=== PATIENT | male | born 1990 | race Caucasian/White ===

== ENCOUNTER 2022-03-31 17:33 | Emergency (ER) | payer BC, OTHER ==
[2022-03-31] MEDS ORDERED: Morphine 4 MG/ML Syringe IM ONE (19:56)
== END 2022-03-31 20:45 | disposition home or self-care (01) ==
LOC: JD.ED 17:33
DX: S42.002A Fracture of unspecified part of left clavicle, initial encounter for closed fracture (principal); F17.210 Nicotine dependence, cigarettes, uncomplicated; W01.10XA Fall on same level from slipping, tripping and stumbling with subsequent striking against unspecified object, initial encounter
CPT/HCPCS: 73000; 73030; 96372; 99283; J2270

== ENCOUNTER 2022-04-04 10:15 | Day surgery (SDC) | payer OTHER ==
[~2022-04-04 10:15] MED LIST: Lactated Ringers 1,000 ML IV SCH; Lidocaine 1%/Sod Bicarbonate in NS 8.4% 1 ML Syringe IDERM PRN; Sodium Chloride 0.9% 10 ML Syringe FLUSH PRN; Sodium Chloride 0.9% 10 ML Syringe FLUSH SCH
[2022-04-04] MEDS ORDERED: Ondansetron 4 MG/2 ML SDV ONE (12:00)
[2022-04-04] MEDS ORDERED: Propofol 200 MG/20 ML SDV ONE (12:00)
[2022-04-04] MEDS ORDERED: Lidocaine 1% 4 ML ONE (12:00)
[2022-04-04] MEDS ORDERED: fentaNYL 250 MCG/5 ML SDV ONE (12:00)
[2022-04-04] MEDS ORDERED: Rocuronium 50 MG/5 ML Vial ONE (12:00)
[2022-04-04] MEDS ORDERED: Midazolam 1 MG/ML 2 ML SDV ONE (12:00)
[2022-04-04] MEDS ORDERED: Bupivacaine 0.25% 10 ML SDV ONE (12:04)
[2022-04-04] MEDS ORDERED: EPINEPHrine 1 MG/ML SDV ONE (12:08)
[2022-04-04] MEDS ORDERED: Ropivacaine 0.5% 5 MG/ML 30 ML SDV ONE (12:08)
[2022-04-04] MEDS ORDERED: HYDROmorphone 0.5 MG/0.5 ML Syringe ONE (13:01)
[2022-04-04] MEDS ORDERED: ceFAZolin 2 GM Vial ONE ×2 (13:16)
[2022-04-04] MEDS ORDERED: ePHEDrine 50 MG/ML SDV ONE (13:27)
[2022-04-04] MEDS ORDERED: fentaNYL 100 MCG/2 ML SDV ONE (13:44)
[2022-04-04] MEDS ORDERED: HYDROmorphone 0.5 MG/0.5 ML Syringe IVPUSH PRN (14:05)
[2022-04-04] MEDS ORDERED: fentaNYL 100 MCG/2 ML SDV IVPUSH PRN (14:05)
[2022-04-04] MEDS ORDERED: Ondansetron 4 MG/2 ML SDV IVPUSH PRN (14:05)
[2022-04-04] MEDS ORDERED: Acetaminophen/HYDROcodone 325-5 MG Tab PO SCH (15:04)
== END 2022-04-04 15:45 | disposition home or self-care (01) ==
LOC: JD.SDS 10:15
PROVIDERS: ATTEND Orthopaedic Surgery
DX: S42.022A Displaced fracture of shaft of left clavicle, initial encounter for closed fracture (principal); F41.9 Anxiety disorder, unspecified; F17.210 Nicotine dependence, cigarettes, uncomplicated; Z79.899 Other long term (current) drug therapy
CPT/HCPCS: 23515; 76000; A9270; C1713; J0171; J0690; J1170; J2250; J2405; J2704; J2795; J3010; J3490; J7120; 00450; 64415; 76942

== ENCOUNTER 2023-02-25 11:27 | Emergency (ER) | payer OTHER ==
[2023-02-25] MEDS ORDERED: Metoclopramide 10 MG/2 ML SDV IVPUSH ONE (11:41)
[2023-02-25] MEDS ORDERED: HYDROmorphone 1 MG/ML Syringe IVPUSH ONE ×2 (11:41→15:36)
[2023-02-25] MEDS ORDERED: Dextrose 5%-0.9% NaCl 1,000 ML IV SCH (11:45)
[2023-02-25] MEDS ORDERED: Iopamidol 612 MG/ML 100 ML Bottle IVPUSH ONE (11:58)
[2023-02-25] MEDS ORDERED: Sodium Chloride 0.9% 10 ML Syringe FLUSH PRN (11:58)
[2023-02-25] MEDS ORDERED: Iopamidol 612 MG/ML 30 ML SDV IVPUSH ONE (11:58)
== END 2023-02-25 17:05 | disposition home or self-care (01) ==
LOC: JD.ED 11:27
DX: S22.068A Other fracture of T7-T8 thoracic vertebra, initial encounter for closed fracture (principal); S82.51XA Displaced fracture of medial malleolus of right tibia, initial encounter for closed fracture; S90.511A Abrasion, right ankle, initial encounter; S20.229A Contusion of unspecified back wall of thorax, initial encounter; V49.49XA Driver injured in collision with other motor vehicles in traffic accident, initial encounter
CPT/HCPCS: 70450; 71260; 72125; 72128; 73610; 73630; 74177; 96374; 96375; 96376; 99284; J1170; J2765; J3490; J7042; Q9967